=== PATIENT | female | born 1960 | race Hispanic/Latino ===

== ENCOUNTER 2019-04-27 09:26 | Inpatient (IN) | payer OTHER ==
[~2019-04-27] VITALS: Ht 162.6 cm; Wt 90.2 kg
[2019-04-27 09:46] LABS: BASOPHILS % (AUTO) 0.7 % (0.0-5.0); EOSINOPHILS % (AUTO) 0.6 % (0.0-8.0); HEMATOCRIT 34.4 % (36-48); LYMPHOCYTES % (AUTO) 15.4 % (21.0-51.0); MEAN CORPUSCULAR HEMOGLOBIN 30.6 pg (27.0-33.0); MEAN CORPUSCULAR HGB CONC 33.8 g/dL (32.0-36.0); MEAN CORPUSCULAR VOLUME 90.4 fL (79-99); MONOCYTES % (AUTO) 5.5 % (3.0-13.0); NEUTROPHILS % (AUTO) 77.8 % (40.0-77.0); NUCLEATED RED BLOOD CELLS 0.1 % (0.0-0.19); PLATELET COUNT (AUTO) 253 K/uL (130-400); RED BLOOD CELL COUNT(AUTO) 3.81 MIL/uL (4.00-5.50); RED CELL DISTRIBUTION WIDTH 13.7 % (11.0-15.5)
[2019-04-27 09:52] LABS: CREATININE 0.5 mg/dL (0.5-1.5); POTASSIUM 3.7 mmol/L (3.5-5.1)
[2019-04-27 09:58] LABS: ALBUMIN 3.4 g/dL (3.5-5.0); BILIRUBIN,TOTAL 0.9 mg/dL (0.2-1.0); TOTAL PROTEIN, SERUM 7.3 g/dL (6.0-8.3)
[2019-04-27 10:30] LABS: APPEARANCE,URINE Clear (CLEAR); BILIRUBIN,URINE Negative (NEGATIVE); COLOR,URINE Yellow (YELLOW); GLUCOSE, URINE (UA) Negative (NEGATIVE); KETONES,URINE Trace mg/dL (NEGATIVE); LEUKOCYTE ESTERASE ,URINE Trace (NEGATIVE); NITRATE,URINE Negative (NEGATIVE); OCCULT BLOOD,URINE Negative (NEGATIVE); PROTEIN,URINE Negative (NEGATIVE); UROBILINOGEN,URINE 0.2 mg/dL (0.2-1.0)
[2019-04-27 10:37] LABS: AMPHET/METH SCREEN,URINE NEGATIVE (NEGATIVE); BARBITURATE SCREEN, URINE NEGATIVE (NEGATIVE); BENZODIAZEPINES SCREEN,URINE NEGATIVE (NEGATIVE); CANNABINOID SCREEN,URINE NEGATIVE (NEGATIVE); COCAINE SCREEN,URINE NEGATIVE (NEGATIVE); OPIATE SCREEN,URINE NEGATIVE (NEGATIVE); PHENCYCLIDINE SCREEN,URINE NEGATIVE (NEGATIVE)
[2019-04-27 10:43] LABS: BACTERIA,URINE Rare /HPF (None Seen); MUCUS,URINE Few LPF (None Seen); RBC,URINE 0-1 /HPF (0-1)
[2019-04-27] MEDS ORDERED: ZOSYN 3.375GM+NS 50ML 50 ML IV ONE (10:52)
[2019-04-27] MEDS ORDERED: ONDANSETRON HCL 4 MG/2 ML VIAL ONE ×2 (11:38→14:07)
[2019-04-27] MEDS ORDERED: MORPHINE SULFATE 4 MG/1ML SYG ONE (13:32)
[2019-04-27] MEDS ORDERED: ACETAMINOPHEN 325 MG TAB PO PRN ×2 (14:30)
[2019-04-27] MEDS ORDERED: HYDRALAZINE HCL 20 MG/ML VIAL IV PRN (14:30)
[2019-04-27] MEDS ORDERED: MORPHINE SULFATE 2 MG/ML 1ML SYG IV PRN (14:30)
[2019-04-27] MEDS: ZOSYN 3.375GM+NS 50ML 50 ML IV SCH ×2 (14:48→18:31)
[2019-04-27] MEDS: SODIUM CHLORIDE 0.9% 1000ML 1,000 ML IV SCH ×2 (14:55→20:38)
--- NOTE | 2019-04-27 15:55 | NUR ---
Placed call to Dr Martinez to inform of surgery consult, return call pending
[2019-04-27 15:57] VITALS: BP 113/54
--- NOTE | 2019-04-27 17:05 | NUR ---
No return call yet from Dr Martinez, went ahead and paged him thru answering service, call back pending.
--- NOTE | 2019-04-27 17:10 | NUR ---
DR. SNYDER SPOKE TO MD VIA TELEPHONE. MD STATED NO ONE INFORMED HIM OF CONSULT WHILE PATIENT WAS IN EMERGENCY ROOM. PROVIDED PATIENT INFORMATION TO MD REGARDING CONSULT. DR. SNYDER REPLIED NO PLANS FOR SURGERY TODAY DUE TO PATIENTS WBC 11.0 TODAY. ALSO SAID OKAY TO START PATIENT ON CLEAR LIQUID DIET AND HE WILL SEE PATIENT TOMORROW 04/28/19.
[2019-04-27] MEDS ORDERED: KETOROLAC TROMETHAMINE 15MG/ML ONE (17:20)
[2019-04-27] MEDS: KETOROLAC TROMETHAMINE 15MG/ML IV PRN ×2 (17:31→23:32)
[2019-04-27 19:31] VITALS: BP 121/68
--- NOTE | 2019-04-27 20:00 | NUR ---
assessment patient awake, alert, ox3, no sob, no c/o pain at this time, family at bedside, extensive discussion regarding plan of care, pain management and expected outcome,patient verbalizes understanding via teach back
[2019-04-27] MEDS: FAMOTIDINE/PF 20 MG/2 ML VIAL IV SCH (20:38)
[2019-04-27] MEDS: ONDANSETRON HCL 4 MG/2 ML VIAL IV PRN (21:59)
--- NOTE | 2019-04-27 21:59 | NUR ---
nausea c/o nausea , no vomiting, zofran 4 mg ivp given
--- NOTE | 2019-04-27 22:45 | NUR ---
med effect nausea subsided , ivf infusing well , family at bedside
[2019-04-27 23:32] VITALS: BP 130/70
[2019-04-28] VITALS (29 sets, daily range): BP systolic 107–138; BP diastolic 50–84
[2019-04-28] MEDS: ZOSYN 3.375GM+NS 50ML 50 ML IV SCH ×3 (04:43→20:28)
[2019-04-28 05:03] LABS: BASOPHILS % (AUTO) 0.4 % (0.0-5.0); EOSINOPHILS % (AUTO) 0.2 % (0.0-8.0); HEMATOCRIT 31.9 % (36-48); LYMPHOCYTES % (AUTO) 15.3 % (21.0-51.0); MEAN CORPUSCULAR HEMOGLOBIN 30.7 pg (27.0-33.0); MEAN CORPUSCULAR HGB CONC 33.9 g/dL (32.0-36.0); MEAN CORPUSCULAR VOLUME 90.8 fL (79-99); MONOCYTES % (AUTO) 9.3 % (3.0-13.0); NEUTROPHILS % (AUTO) 74.8 % (40.0-77.0); NUCLEATED RED BLOOD CELLS 0.1 % (0.0-0.19); PLATELET COUNT (AUTO) 246 K/uL (130-400); RED BLOOD CELL COUNT(AUTO) 3.52 MIL/uL (4.00-5.50); RED CELL DISTRIBUTION WIDTH 13.8 % (11.0-15.5); WHITE BLOOD COUNT (AUTO) 9.5 K/uL (4.8-10.8)
[2019-04-28 05:08] LABS: CREATININE 0.6 mg/dL (0.5-1.5); POTASSIUM 3.8 mmol/L (3.5-5.1)
[2019-04-28] MEDS: SODIUM CHLORIDE 0.9% 1000ML 1,000 ML IV SCH ×3 (06:29→21:36)
[2019-04-28 07:43] LABS: ALBUMIN 2.9 g/dL (3.5-5.0); BILIRUBIN,TOTAL 1.3 mg/dL (0.2-1.0); TOTAL PROTEIN, SERUM 6.8 g/dL (6.0-8.3)
[2019-04-28] MEDS: FAMOTIDINE/PF 20 MG/2 ML VIAL IV SCH ×2 (08:38→20:28)
[2019-04-28] MEDS ORDERED: DEXAMETHASONE SOD PHOSPHATE 10MG/ML 1ML VIAL ONE (13:35)
[2019-04-28] MEDS ORDERED: LIDOCAINE PF 2% 5ML ABBOJECT ONE (13:35)
[2019-04-28] MEDS ORDERED: ONDANSETRON HCL 4 MG/2 ML VIAL ONE (13:36)
[2019-04-28] MEDS ORDERED: MIDAZOLAM HCL 1 MG/ML 2ML VIAL ONE ×2 (13:36→13:37)
[2019-04-28] MEDS ORDERED: PROPOFOL 10 MG/ML 20ML VIAL IV ONE ×2 (13:36→13:41)
[2019-04-28] MEDS ORDERED: FENTANYL CITRATE PF 50 MCG/1 ML 2ML VIAL ONE (13:36)
[2019-04-28] MEDS ORDERED: SUCCINYLCHOLINE CHLORIDE 20 MG/ML 10 ML VIAL ONE (13:43)
[2019-04-28] MEDS: LACTATED RINGERS 1000ML 1,000 ML IV SCH ×2 (13:45→20:28)
[2019-04-28] MEDS ORDERED: BUPIVACAINE/PF 0.5% 10ML VIAL ONE (13:53)
--- NOTE | 2019-04-28 14:54 | NUR ---
CM NOTE CM attempted to visit with patient. Currently down for procedure. CM to f/u.
[2019-04-28] MEDS ORDERED: MEPERIDINE-PF 25 MG/ML SYG ONE (15:16)
[2019-04-28] MEDS: ONDANSETRON HCL 4 MG/2 ML VIAL IV PRN (16:37)
[2019-04-28] MEDS: KETOROLAC TROMETHAMINE 15MG/ML IV PRN ×2 (16:37→23:30)
--- NOTE | 2019-04-28 18:00 | NUR ---
NOTE PATIENT CAME IN YESTERDAY WITH RUQ PAIN. SHE UNDERWENT [facility] WITH DR SNYDER EARLIER. SHE CAME BACK WITH C/O PAIN WAS MEDICATED FOR PAIN AND NAUSEA AND HAS BEEN SLEEPING SICNE SHE RETURNED. ALSO C/O SORE THROAT FROM INTUBATION AND WAS INSTRUCTED NOT TO SPEAK TOO MUCH BY [place] FROM PACU. HAS BEEN OTHERWISE STABLE. HER FAMILY AT HER SIDE. ABDOMEN SOFT 4 SMALL INCISIONS WITH BANDAIDS PRESENT WITH SMALL AMOUNT SEROSANGUINOUS DRAINAGE PRESENT TO SOME. SHE WILL POSSIBLY BE DISCHARGED HOME TOMORROW. SHE DID NOT WANT TO EAT REGULAR FOOD FOR NOW BUT THERE IS AN ORDERS FOR REGULAR DIET.
--- NOTE | 2019-04-28 18:42 | NUR ---
D/C PLAN CM spoke to pt regarding d/c planning. Spouse at bedside. Pt is ind. with ADL's. Spouse can assist in care as needed. Denies having any DME. Pt is visiting from [place], [place]. Plan is to return home when discharged. No needs verbalized or identified. CM to f/u. Addendum: 04/28/19 at 1843 by BELLA JUNG CM Amended: Links added.
[2019-04-29] MEDS: POTASSIUM CHLORIDE 20 MEQ ERTAB PO PRN ×5 (01:00→22:45)
[2019-04-29 04:00] VITALS: BP 128/85
[2019-04-29] MEDS: ZOSYN 3.375GM+NS 50ML 50 ML IV SCH ×3 (04:25→20:28)
[2019-04-29] MEDS: SODIUM CHLORIDE 0.9% 1000ML 1,000 ML IV SCH ×3 (04:26→22:29)
[2019-04-29] MEDS: KETOROLAC TROMETHAMINE 15MG/ML IV PRN ×2 (04:38→10:18)
[2019-04-29 05:59] LABS: CREATININE 0.5 mg/dL (0.5-1.5); POTASSIUM 3.1 mmol/L (3.5-5.1)
[2019-04-29 06:18] LABS: HEMATOCRIT 27.8 % (36-48); MEAN CORPUSCULAR HEMOGLOBIN 31.3 pg (27.0-33.0); MEAN CORPUSCULAR HGB CONC 33.8 g/dL (32.0-36.0); MEAN CORPUSCULAR VOLUME 92.5 fL (79-99); PLATELET COUNT (AUTO) 202 K/uL (130-400); RED BLOOD CELL COUNT(AUTO) 3.01 MIL/uL (4.00-5.50); RED CELL DISTRIBUTION WIDTH 13.8 % (11.0-15.5)
[2019-04-29 06:45] LABS: LYMPHOCYTES % (MANUAL) 18 % (22-44); MONOCYTES % (MANUAL) 8 % (2-9); SEGMENTED NEUTROPHILS % 74 % (40-70)
[2019-04-29 06:46] LABS: MAN.DIFF COMMENT-IMPRESSION MANUAL DIFFERENTIAL; PLATELET MORPHOLOGY COMMENT ADEQUATE
[2019-04-29 07:56] VITALS: BP 129/74
[2019-04-29] MEDS ORDERED: POTASSIUM CHLORIDE 10% ELIXIR 20 MEQ/15 ML UDCUP PO PRN (10:00)
[2019-04-29] MEDS ORDERED: POTASSIUM CHLORIDE 20MEQ/100ML 100 ML IV PRN (10:00)
[2019-04-29] MEDS ORDERED: LIDOCAINE HCL-MPF 1% 2ML VIAL IV PRN (10:00)
[2019-04-29] MEDS: FAMOTIDINE/PF 20 MG/2 ML VIAL IV SCH ×2 (10:19→20:28)
[2019-04-29] MEDS ORDERED: TRAMADOL HCL 50 MG TABLET ONE (10:24)
[2019-04-29] MEDS ORDERED: ACETAMINOPHEN EXTRA STRENGTH 500 MG TABLET ONE (10:24)
[2019-04-29] MEDS ORDERED: TRAMADOL HCL 50 MG TABLET PO SCH (10:30)
[2019-04-29] MEDS ORDERED: ACETAMINOPHEN EXTRA STRENGTH 500 MG TABLET PO SCH (10:30)
[2019-04-29 11:47] VITALS: BP 117/61
[2019-04-29] MEDS: LACTATED RINGERS 1000ML 1,000 ML IV SCH (16:25)
[2019-04-29 16:40] VITALS: BP 116/65
--- NOTE | 2019-04-29 16:53 | NUR ---
DIET EDUCATION RD provided Cholecystitis/Lap Sommer diet education to Pt. RD reviewed reference materials and handouts with Pt. RD discussed nutritional recommendations with Pt. Pt with multiple questions. RD answered all questions. Pt verbalized understanding. KATHIA encouraged Pt to notify as additional questions or concerns arise. Addendum: 04/29/19 at [address] RD Amended: Links added.
[2019-04-29 17:00] LABS: CREATININE 0.5 mg/dL (0.5-1.5); POTASSIUM 3.2 mmol/L (3.5-5.1)
[2019-04-29 17:08] LABS: ALBUMIN 2.4 g/dL (3.5-5.0); BILIRUBIN,TOTAL 1.6 mg/dL (0.2-1.0); TOTAL PROTEIN, SERUM 6.3 g/dL (6.0-8.3)
[2019-04-29] MEDS ORDERED: MAGNESIUM SULFATE 1 GM in SODIUM CHLORIDE 0.9% 50 ML IV PRN (17:45)
[2019-04-29 19:00] VITALS: BP 131/92
[2019-04-29] MEDS: TRAMADOL HCL 50 MG TABLET PO PRN (20:40)
[2019-04-30] VITALS: BP 121/72
[2019-04-30 04:00] VITALS: BP 132/66
[2019-04-30 05:19] LABS: BASOPHILS % (AUTO) 0.4 % (0.0-5.0); EOSINOPHILS % (AUTO) 2.1 % (0.0-8.0); HEMATOCRIT 26.7 % (36-48); LYMPHOCYTES % (AUTO) 19.1 % (21.0-51.0); MEAN CORPUSCULAR HEMOGLOBIN 31.5 pg (27.0-33.0); MEAN CORPUSCULAR HGB CONC 34.8 g/dL (32.0-36.0); MEAN CORPUSCULAR VOLUME 90.5 fL (79-99); MONOCYTES % (AUTO) 6.6 % (3.0-13.0); NEUTROPHILS % (AUTO) 71.8 % (40.0-77.0); PLATELET COUNT (AUTO) 256 K/uL (130-400); RED BLOOD CELL COUNT(AUTO) 2.96 MIL/uL (4.00-5.50); RED CELL DISTRIBUTION WIDTH 13.9 % (11.0-15.5); WHITE BLOOD COUNT (AUTO) 7.5 K/uL (4.8-10.8)
--- NOTE | 2019-04-30 05:20 | NUR ---
NOTE PATIENT VOICING CONCERN OVER NOT HAVING HAD A BM YET. SAYS SHE IS PASSING GAS. SHE IS WALKING. ENCOURAGED TO CONTINUE WITH ACTIVITY AND OFFERED HER PRUNE JUICE WHICH SHE ACCEPTED. INSTRUCTED TO ALLOW TO GET TO ROOM TEMPERATURE BEFORE DRINKING IT.
[2019-04-30 05:38] LABS: ALBUMIN 2.4 g/dL (3.5-5.0); CREATININE 0.5 mg/dL (0.5-1.5); POTASSIUM 3.6 mmol/L (3.5-5.1); TOTAL PROTEIN, SERUM 6.3 g/dL (6.0-8.3)
[2019-04-30] MEDS: LACTATED RINGERS 1000ML 1,000 ML IV SCH (05:45)
[2019-04-30] MEDS: SODIUM CHLORIDE 0.9% 1000ML 1,000 ML IV SCH ×2 (06:28→14:29)
[2019-04-30] MEDS: POTASSIUM CHLORIDE 20 MEQ ERTAB PO PRN ×2 (06:29→10:01)
[2019-04-30 07:58] VITALS: BP 108/58
[2019-04-30] MEDS: FAMOTIDINE/PF 20 MG/2 ML VIAL IV SCH (10:01)
[2019-04-30] MEDS: TRAMADOL HCL 50 MG TABLET PO PRN (12:28)
== END 2019-04-30 14:50 | disposition home or self-care (01) | DRG 419 ==
LOC: EDH 09:26 → OBSVTOIN 14:00 → EDHIP 14:00 → 4CH 14:40
PROVIDERS: ADMIT Family Medicine; ATTEND Family Medicine
PROC: 0FT44ZZ Resection of Gallbladder, Percutaneous Endoscopic Approach (ICD-10-PCS; principal; 2019-04-28 14:03)
DX: K80.00 Calculus of gallbladder with acute cholecystitis without obstruction (principal); K82.A1 Gangrene of gallbladder in cholecystitis; E87.6 Hypokalemia; M19.90 Unspecified osteoarthritis, unspecified site; I10 Essential (primary) hypertension
CPT/HCPCS: 36415; 74176; 76705; 80048; 80053; 80305; 81001; 82150; 83690; 85025; 93005; G0378; J0330; J1100; J1885; J2001; J2175; J2250; J2270; J2405; J2543; J2704; J3010; J3490; J7030; J7120